=== PATIENT | female | born 1990 | race Caucasian/White ===

== ENCOUNTER 2016-06-22 16:09 | Emergency (ER) | payer OTHER ==
[~2016-06-22] VITALS: Ht 157.5 cm; Wt 82.3 kg
[~2016-06-22 16:09] MED LIST: ATARAX,VISTARIL50 MG PO; CLONAZEPAM0.5 MG PO; CORLANOR5 MG PO; DESYREL100 MG PO; FLAGYL500 MG PO; HYDROXYZINE HCL50 MG PO; HYDROXYZINE PAM50 MG PO; KLONOPIN0.5 M1 PO; LEXAPRO10 MG PO; LITHIUM CARBON150 MG PO; LITHIUM CARBON300 MG PO; METOPROLOL SUC100 MG PO; PAROXETINE HCL30 MG PO; PAXIL30 MG PO; PERCOCET 5/31 TABLET PO; RISPERDAL1 MG PO; RISPERDAL3 MG PO; RISPERIDONE1 MG PO; TRAZODONE HCL50 MG PO; VIBRAMYCIN100 MG PO
[2016-06-22 16:53] LABS: HEMATOCRIT 42.7 % (36.0-46.0); MCH 28.6 PG (29.0-34.0); MCHC 33.3 G/DL (30.0-36.0); MCV 86.1 FL (83-99); MEAN PLAT.VOLUME 10.2 uM^3 (9.5-12.4); PLATELET COUNT 207 K/uL (156-360); RBC DIS.WIDTH-CV 12.5 % (11.8-14.6); RBC DIS.WIDTH-SD 39.1 % (39-53); RED BLOOD COUNT 4.96 M/uL (3.80-5.20); WHITE BLOOD COUNT 4.3 K/uL (4.1-10.2)
[2016-06-22 17:01] LABS: CHLORIDE 109 mEq/L (99-109); POTASSIUM 3.8 mEq/L (3.7-5.4); SODIUM 141 mEq/L (136-147)
[2016-06-22 17:03] LABS: GLUCOSE 101 mg/dL (70-99)
[2016-06-22 17:04] LABS: ANION GAP 10 MEQ/L (2-14)
[2016-06-22 17:06] LABS: GFR ESTIMATE (CALCULATED) > 59 mL/min/
[2016-06-22 17:07] LABS: UREA NITROGEN (BUN) 12 mg/dL (9-23)
[2016-06-22 17:15] LABS: TROP-I INTERPRETATION NEGATIVE; TROPONIN-I < 0.01 ng/mL (0.0-0.30)
[2016-06-22 17:17] LABS: D-DIMER ELISA 0.16 mg/L FEU (< 0.57)
[2016-06-22 17:41] LABS: QUANTITATIVE HCG < 4.0 MIU/ML
[2016-06-22] MEDS ORDERED: ZOFRAN4 MG PO (18:55)
[2016-06-22 19:35] VITALS: BP 140/96
== END 2016-06-22 19:37 | disposition home or self-care (01) ==
LOC: EME 16:09
DX: R07.9 Chest pain, unspecified (principal); Z87.891 Personal history of nicotine dependence; F31.9 Bipolar disorder, unspecified
CPT/HCPCS: 71020; 80048; 84484; 84702; 85027; 85379; 93005; 99281; 99285

== ENCOUNTER 2016-08-03 17:47 | Emergency (ER) | payer OTHER ==
[~2016-08-03] VITALS: Ht 157.5 cm; Wt 79.9 kg
[~2016-08-03 17:47] MED LIST changes: +ZOFRAN4 MG PO
[2016-08-03] MEDS ORDERED: MOTRIN800 MG PO (18:33)
[2016-08-03] MEDS ORDERED: FLEXERIL10 MG PO (18:33)
[2016-08-03 18:42] VITALS: BP 143/98
== END 2016-08-03 18:43 | disposition home or self-care (01) ==
LOC: EME 17:47
DX: M54.5 Low back pain (principal); S13.9XXA Sprain of joints and ligaments of unspecified parts of neck, initial encounter; V49.10XA Passenger injured in collision with unspecified motor vehicles in nontraffic accident, initial encounter; Y92.810 Car as the place of occurrence of the external cause; Z88.1 Allergy status to other antibiotic agents; Z88.0 Allergy status to penicillin; Z91.040 Latex allergy status
CPT/HCPCS: 99281; 99283

== ENCOUNTER 2016-12-30 04:37 | Emergency (ER) | payer BC ==
[~2016-12-30] VITALS: Ht 157.5 cm; Wt 80.8 kg
[~2016-12-30 04:37] MED LIST changes: +FLEXERIL10 MG PO; +MOTRIN800 MG PO
[2016-12-30 05:26] LABS: INFLUENZA A VIRAL ANTIGEN NEGATIVE; INFLUENZA B VIRAL ANTIGEN NEGATIVE
[2016-12-30] MEDS ORDERED: ZITHROMAX Z-PA250 MG PO (05:49)
[2016-12-30] MEDS ORDERED: SUDAFED 12-HOU120 MG PO (05:49)
[2016-12-30 06:45] LABS: HEMATOCRIT 41.9 % (36.0-46.0); MCH 28.3 PG (29.0-34.0); MCHC 32.9 G/DL (30.0-36.0); MEAN PLAT.VOLUME 9.9 uM^3 (9.5-12.4); PLATELET COUNT 290 K/uL (156-360); RBC DIS.WIDTH-CV 12.1 % (11.8-14.6); RBC DIS.WIDTH-SD 38.5 % (39-53); RED BLOOD COUNT 4.87 M/uL (3.80-5.20); WHITE BLOOD COUNT 7.7 K/uL (4.1-10.2)
[2016-12-30] MEDS ORDERED: ZOFRAN4 MG PO (07:01)
[2016-12-30 07:21] LABS: TROP-I INTERPRETATION NEGATIVE; TROPONIN-I < 0.01 ng/mL (0.0-0.30)
[2016-12-30 07:28] LABS: CHLORIDE 103 MEQ/L (99-109); POTASSIUM 4.4 MEQ/L (3.7-5.4); SODIUM 138 MEQ/L (136-147)
[2016-12-30 07:46] VITALS: BP 123/97
[2016-12-30 07:46] LABS: ANION GAP 8 MEQ/L (2-14); GFR ESTIMATE (CALCULATED) > 59 mL/min/; GLUCOSE 89 mg/dL (70-99); SAMPLE HEMOLYSIS CHECK 0; SAMPLE ICTERIC CHECK 0; SAMPLE LIPEMIA CHECK 0; UREA NITROGEN (BUN) 13 mg/dL (9-23)
== END 2016-12-30 07:47 | disposition home or self-care (01) ==
LOC: EME 04:37
PROVIDERS: Emergency Medicine
DX: J01.90 Acute sinusitis, unspecified (principal); R11.2 Nausea with vomiting, unspecified; R05 Cough; J02.9 Acute pharyngitis, unspecified; R42 Dizziness and giddiness; R00.0 Tachycardia, unspecified; Z88.0 Allergy status to penicillin
CPT/HCPCS: 71010; 80048; 84484; 85027; 87502; 87651 90; 93005; 99281; 99283

== ENCOUNTER 2017-03-30 07:33 | Emergency (ER) | payer OTHER ==
[~2017-03-30] VITALS: Ht 157.5 cm; Wt 72.7 kg
[~2017-03-30 07:33] MED LIST changes: +SUDAFED 12-HOU120 MG PO; +ZITHROMAX Z-PA250 MG PO
[2017-03-30] MEDS ORDERED: PAROXETINE HCL40 MG PO (07:51)
[2017-03-30] MEDS ORDERED: DIVALPROEX SOD250 MG PO (07:52)
[2017-03-30] MEDS ORDERED: DESVENLAFAXINE50 M3 PO (07:53)
[2017-03-30] MEDS ORDERED: QUETIAPINE FUMA25 MG PO (07:53)
[2017-03-30] MEDS ORDERED: ROBAXIN750 MG PO (10:39)
[2017-03-30] MEDS ORDERED: NAPROXEN500 MG PO (10:39)
[2017-03-30 10:58] VITALS: BP 126/97
== END 2017-03-30 10:59 | disposition home or self-care (01) ==
LOC: EME 07:33
DX: M54.5 Low back pain (principal); F43.10 Post-traumatic stress disorder, unspecified; F32.9 Major depressive disorder, single episode, unspecified; F41.9 Anxiety disorder, unspecified; Z88.0 Allergy status to penicillin; Z91.040 Latex allergy status
CPT/HCPCS: 72100; 99281; 99284

== ENCOUNTER 2017-06-09 23:46 | Emergency (ER) | payer OTHER, BC ==
[~2017-06-09] VITALS: Ht 157.5 cm; Wt 82.1 kg
[~2017-06-09 23:46] MED LIST changes: +DESVENLAFAXINE50 M3 PO; +DIVALPROEX SOD250 MG PO; +NAPROXEN500 MG PO; +PAROXETINE HCL40 MG PO; +QUETIAPINE FUMA25 MG PO; +ROBAXIN750 MG PO
[2017-06-09 23:51] VITALS: BP 142/119
[2017-06-10 00:22] LABS: HEMATOCRIT 40.5 % (36.0-46.0); HEMOGLOBIN 13.8 G/DL (11.9-15.5); MCH 29.4 PG (29.0-34.0); MCHC 34.1 G/DL (30.0-36.0); MCV 86.4 FL (83-99); PLATELET COUNT 346 K/uL (156-360); RBC DIS.WIDTH-CV 12.4 % (11.8-14.6); RED BLOOD COUNT 4.69 M/uL (3.80-5.20); WHITE BLOOD COUNT 7.1 K/uL (4.1-10.2)
[2017-06-10 00:34] LABS: ALBUMIN 4.7 g/dL (3.2-4.8)
[2017-06-10 00:35] LABS: CHLORIDE 104 mEq/L (99-109); POTASSIUM 3.9 mEq/L (3.7-5.4); SODIUM 140 mEq/L (136-147)
[2017-06-10 00:37] LABS: GLUCOSE 92 mg/dL (70-99); TOTAL PROTEIN 7.6 g/dL (6.4-8.3)
[2017-06-10 00:39] LABS: TOTAL BILIRUBIN 0.2 mg/dL (0.0-1.0)
[2017-06-10 00:40] LABS: ALKALINE PHOSPHATASE 67 IU/L (3-129)
[2017-06-10 00:41] LABS: CREATININE 0.8 mg/dL (0.6-1.3); GFR ESTIMATE (CALCULATED) > 59 mL/min/
[2017-06-10 00:42] LABS: AST (GOT) 28 IU/L (2-34); UREA NITROGEN (BUN) 13 mg/dL (9-23)
[2017-06-10 00:44] LABS: ALT (GPT) 17 IU/L (3-49)
[2017-06-10 00:49] LABS: QUANTITATIVE HCG < 4.0 MIU/ML
[2017-06-10 02:32] LABS: APPEARANCE SL.HAZY ((CLEAR)); BILIRUBIN NEGATIVE; BLOOD NEGATIVE; COLOR YELLOW ((YELLOW)); GLUCOSE (STRIP) NEGATIVE; KETONES NEGATIVE; LEUKOCYTES MODERATE; NITRITE NEGATIVE; PROTEIN (STRIP) 30; SPECIFIC GRAVITY 1.024 (1.000-1.030); UROBILINOGEN 0.2 MG/DL (0.2-1.0)
[2017-06-10 02:36] LABS: BACTERIA RARE /HPF; EPITHELIAL CELLS 2+ /HPF; MUCUS TRACE /LPF; RED BLOOD CELLS 0-5 /HPF (0-5); UCUL ADDED? NO; WHITE BLOOD CELLS 0-5 /HPF (0-5)
== END 2017-06-10 03:56 | disposition left against medical advice (07) ==
LOC: EME 23:46
DX: R10.2 Pelvic and perineal pain (principal); Z53.21 Procedure and treatment not carried out due to patient leaving prior to being seen by health care provider
CPT/HCPCS: 80053; 81003; 84702; 85027

== ENCOUNTER 2017-09-24 05:59 | Emergency (ER) | payer OTHER ==
[~2017-09-24] VITALS: Ht 157.5 cm; Wt 80.9 kg
[2017-09-24 06:39] LABS: HEMATOCRIT 40.7 % (36.0-46.0); HEMOGLOBIN 13.6 G/DL (11.9-15.5); MCH 28.3 PG (29.0-34.0); MCHC 33.4 G/DL (30.0-36.0); MCV 84.8 FL (83-99); PLATELET COUNT 273 K/uL (156-360); RBC DIS.WIDTH-CV 12.4 % (11.8-14.6); RBC DIS.WIDTH-SD 38.2 % (39-53)
[2017-09-24 06:50] LABS: CHLORIDE 107 mEq/L (99-109); SODIUM 141 mEq/L (136-147)
[2017-09-24 06:52] LABS: GLUCOSE 97 mg/dL (70-99)
[2017-09-24 06:56] LABS: CREATININE 0.8 mg/dL (0.6-1.3); GFR ESTIMATE (CALCULATED) > 59 mL/min/
[2017-09-24 06:57] LABS: UREA NITROGEN (BUN) 12 mg/dL (9-23)
[2017-09-24 06:59] LABS: TROP-I INTERPRETATION NEGATIVE; TROPONIN-I 0.01 ng/mL (0.0-0.30)
[2017-09-24 07:06] LABS: D-DIMER ELISA < 150.00 ng/mLDDU (<230)
[2017-09-24 09:06] LABS: TROP-I INTERPRETATION NEGATIVE; TROPONIN-I < 0.01 ng/mL (0.0-0.30)
[2017-09-24] MEDS ORDERED: MOTRIN800 MG PO (09:28)
[2017-09-24 09:35] VITALS: BP 117/91
== END 2017-09-24 09:55 | disposition home or self-care (01) ==
LOC: EME 05:59
PROVIDERS: Emergency Medicine
DX: R07.89 Other chest pain (principal); M54.2 Cervicalgia
CPT/HCPCS: 71046; 80048; 84484; 85027; 85379; 93005; 99281; 99285